=== PATIENT | female | born 1985 | race Caucasian/White ===

== ENCOUNTER 2021-10-20 04:13 | Day surgery (SDC) | payer OTHER ==
[2021-10-18 16:52] VITALS: BMI 34.9
[2021-10-20] MEDS ORDERED: SEVOFLURANE 250 ML BTL ONE (13:45)
[2021-10-20] MEDS ORDERED: MIDAZOLAM HCL 2 MG/2 ML SINGLE DOSE VIAL ONE (13:48)
[2021-10-20] MEDS ORDERED: PROPOFOL 20 ML ONE (13:48)
[2021-10-20] MEDS ORDERED: SUCCINYLCHOLINE CHLORIDE 200 MG/10 ML SYRINGE ONE (13:48)
[2021-10-20] MEDS ORDERED: BACITRACIN 15 GM TUBE TOPICAL OINTMENT ONE (14:30)
[2021-10-20] MEDS ORDERED: IBUPROFEN 600 MG TABLET (FP) PO PRN (14:43)
[2021-10-20] MEDS ORDERED: oxyCODONE HCL 5 MG TABLET PO PRN (14:43)
[2021-10-20] MEDS ORDERED: IBUPROFEN 800 MG/8 ML IJ IVPB PRN (14:43)
[2021-10-20] MEDS ORDERED: ONDANSETRON 4 MG/2 ML VIAL IVPUSH PRN ×2 (14:43→15:12)
[2021-10-20] MEDS ORDERED: ELECTROLYTE-148 SOLN 1,000 ML IV SCH (14:45)
[2021-10-20] MEDS ORDERED: LACTATED RINGERS SOLUTION 1,000 ML IV SCH (15:15)
[2021-10-20 16:40] VITALS: TEMP 97.2
[2021-10-20 16:51] VITALS: BP 120/64; PULSE 64
== END 2021-10-20 17:20 | disposition home or self-care (01) ==
LOC: JASU-SURG 04:13
PROVIDERS: ATTEND Obstetrics & Gynecology
PROC: 0UBM0ZZ Excision of Vulva, Open Approach (ICD-10-PCS; principal; 2021-10-20 14:00)
DX: D17.72 Benign lipomatous neoplasm of other genitourinary organ (principal)
CPT/HCPCS: 88304-TC; 94760

== ENCOUNTER 2023-04-10 04:14 | Inpatient (IN) | payer OTHER ==
[2023-04-06 13:36] VITALS: BMI 35.7
[2023-04-10] MEDS ORDERED: MIDAZOLAM HCL 2 MG/2 ML SINGLE DOSE VIAL ONE (09:03)
[2023-04-10] MEDS ORDERED: DEXAMETHASONE SOD PHOSPHATE 10 MG/1 ML VIAL ONE (09:04)
[2023-04-10] MEDS ORDERED: ROPIVACAINE HCL 0.5% 30ML VIAL ONE (09:04)
[2023-04-10] MEDS ORDERED: ROCURONIUM BROMIDE 50 MG/5 ML SYRINGE ONE (09:32)
[2023-04-10] MEDS ORDERED: ceFAZolin SODIUM 1 GM VIAL IVPB ONE (09:50)
[2023-04-10] MEDS ORDERED: HYDROmorphone HCl 2 MG/ML VIAL ONE (10:00)
[2023-04-10] MEDS ORDERED: VASOPRESSIN 20 UNITS/ML VIAL IV ONE (10:05)
[2023-04-10] MEDS ORDERED: NEOSTIGMINE METHYLSULFATE 0.5 MG/1 ML - 10 ML MDV ONE (10:55)
[2023-04-10] MEDS ORDERED: PROPOFOL 20 ML ONE ×2 (10:58)
[2023-04-10] MEDS ORDERED: HYDROmorphone *PCA* 10MG/50ML DISP.SYRIN PCA SCH ×2 (11:45→12:20)
[2023-04-10] MEDS ORDERED: oxyCODONE HCL 5 MG TABLET PO PRN ×2 (11:48→11:52)
[2023-04-10] MEDS ORDERED: IBUPROFEN 800 MG/8 ML IJ IVPB PRN (11:48)
[2023-04-10] MEDS ORDERED: ONDANSETRON 4 MG/2 ML VIAL IVPUSH PRN (11:48)
[2023-04-10] MEDS ORDERED: SIMETHICONE 80 MG TAB.CHEW (FP) PO PRN (11:51)
[2023-04-10] MEDS ORDERED: ELECTROLYTE-148 SOLN 1,000 ML IV SCH (12:00)
[2023-04-10] MEDS ORDERED: HYDROmorphone *PCA* 10MG/50ML DISP.SYRIN ONE (12:11)
[2023-04-10] MEDS: CEFAZOLIN SODIUM 2 GM in DEXTROSE 5%-WATER 100 ML IVPB SCH (18:18)
[2023-04-10] MEDS: LACTATED RINGERS SOLUTION 1,000 ML IV SCH (23:58)
[2023-04-11] MEDS: CEFAZOLIN SODIUM 2 GM in DEXTROSE 5%-WATER 100 ML IVPB SCH ×3 (02:15→17:03)
[2023-04-11 09:15] LABS: HEMATOCRIT 34.4 % (32.4-45.2); HEMOGLOBIN 11.1 GM/dL (10.7-15.3); MCH 28.9 pg (25.7-33.7); MCHC 32.4 g/dl (32.0-36.0); MEAN CELL VOLUME 89.3 fl (80-96); MEAN PLT VOLUME 8.2 fl (7.5-11.1); PLATELET COUNT 396 10^3/uL (134-434); RBC 3.85 M/mm3 (3.60-5.2); RDW 13.5 % (11.6-15.6); WHITE BLOOD COUNT 18.6 K/mm3 (4.0-10.0)
[2023-04-11] MEDS: DOCUSATE SODIUM 100 MG CAPSULE (FP) PO SCH ×2 (09:48→21:03)
[2023-04-11 10:00] LABS: POTASSIUM 3.7 mmol/L (3.5-5.1)
[2023-04-11] MEDS ORDERED: ENOXAPARIN NA (PORCINE) 40 MG/0.4 ML DISP.SYRIN SQ SCH (10:00)
[2023-04-11 10:01] LABS: CALCIUM 8.2 mg/dL (8.5-10.1)
[2023-04-11 10:02] LABS: BLOOD UREA NITROGEN 7.7 mg/dL (7-18)
[2023-04-11 10:05] LABS: CREATININE 0.6 mg/dL (0.55-1.3)
[2023-04-11] MEDS: LACTATED RINGERS SOLUTION 1,000 ML IV SCH (11:52)
[2023-04-11] MEDS: IBUPROFEN 600 MG TABLET (FP) PO PRN (21:03)
[2023-04-11 21:58] VITALS: RESP 20
[2023-04-12] MEDS: CEFAZOLIN SODIUM 2 GM in DEXTROSE 5%-WATER 100 ML IVPB SCH ×2 (01:32→08:59)
[2023-04-12 08:33] LABS: BASO % 0.3 % (0-2.0); HEMATOCRIT 33.9 % (32.4-45.2); HEMOGLOBIN 11.2 GM/dL (10.7-15.3); LYMPH % 23.6 % (8-40); MCH 29.5 pg (25.7-33.7); MEAN CELL VOLUME 89.4 fl (80-96); MEAN PLT VOLUME 8.1 fl (7.5-11.1); MONO % 7.3 % (3.8-10.2); NEUT % 66.8 % (42.8-82.8); PLATELET COUNT 313 10^3/uL (134-434); RBC 3.79 M/mm3 (3.60-5.2); RDW 13.8 % (11.6-15.6); WHITE BLOOD COUNT 12.7 K/mm3 (4.0-10.0)
[2023-04-12] MEDS: DOCUSATE SODIUM 100 MG CAPSULE (FP) PO SCH (08:59)
[2023-04-12] MEDS: IBUPROFEN 600 MG TABLET (FP) PO PRN (08:59)
[2023-04-12 10:00] VITALS: BP 119/79; PULSE 90; TEMP 98.4
== END 2023-04-12 10:45 | disposition home or self-care (01) | DRG 743 ==
LOC: J2C 04:14 → J7W 17:23
PROVIDERS: ADMIT Obstetrics & Gynecology; ATTEND Obstetrics & Gynecology
PROC: 0UB90ZZ Excision of Uterus, Open Approach (ICD-10-PCS; principal; 2023-04-10 09:00)
DX: D25.1 Intramural leiomyoma of uterus (principal); R10.2 Pelvic and perineal pain; N85.4 Malposition of uterus; E66.9 Obesity, unspecified; Z68.35 Body mass index [BMI] 35.0-35.9, adult
CPT/HCPCS: 36415; 80048; 85025; 85027; 86850; 86900; 86901; 88305-TC; 94760; J1100